=== PATIENT | female | born 1985 | race Caucasian/White ===

== ENCOUNTER 2020-08-10 17:38 | Observation (INO) ==
[2020-08-10 17:49] LABS: Bilirubin,Urine Negative (Negative); Blood,Urine Negative (Negative); Clarity,Urine Clear (Clear); Color,Urine Colorless (Yellow); Glucose,Urine (UA) Normal (Normal); Ketones,Urine Negative (Negative); Leukocyte Esterase,Urine Negative (Negative); Nitrite,Urine Negative (Negative); PH,Urine 6.5 pH Units (5.0-8.0); Protein,Urine Negative (Neg-Trace); Specific Gravity,Urine 1.008 (1.010-1.025); Urobilinogen,Urine Normal (Normal)
== END 2020-08-10 18:17 | disposition home or self-care (01) ==
LOC: 1NENULAB
PROVIDERS: ADMIT Student in an Organized Health Care Education/Training Program; ATTEND Student in an Organized Health Care Education/Training Program

== ENCOUNTER 2020-08-24 08:13 | Inpatient (IN) ==
[2020-08-24] MEDS ORDERED: Lidocaine 1% 20 ML MDV ID PRN (08:18)
[2020-08-24] MEDS ORDERED: Ondansetron 4 MG/2 ML VIAL IVP PRN ×2 (08:18→12:33)
[2020-08-24] MEDS ORDERED: Metoclopramide 10 MG/2 ML VIAL IVP PRN (08:18)
[2020-08-24] MEDS ORDERED: Azithromycin 500 MG in 0.9 % Sodium Chloride 250 ML IVPB ONE (08:18)
[2020-08-24] MEDS ORDERED: Naloxone 0.4 MG/ML INJ IVP PRN ×2 (08:18→12:33)
[2020-08-24] MEDS ORDERED: Famotidine 20 MG/2 ML VIAL IVP PRN (08:18)
[2020-08-24] MEDS ORDERED: *HR* FentaNYL (PF) 100 MCG/2 ML VIAL IVP PRN (08:18)
[2020-08-24] MEDS ORDERED: Ringers Solution, Lactated 1,000 ML IVC SCH (08:30)
[2020-08-24] MEDS ORDERED: Oxytocin 20 units/ LR 1000 mL 20 UNIT/1,000 ML BAG IVC SCH ×2 (08:30→19:43)
[2020-08-24 09:07] LABS: Basophils # 0.1 K/mcL (0.0-0.2); Basophils % 0.7 %; Eosinophils # 0.2 K/mcL (0.0-0.6); Eosinophils % 1.7 %; Hemoglobin 11.1 g/dL (11.5-15.4); Immature Granulocytes % 0.7 % (0-4); Lymphocytes # 2.8 K/mcL (0.6-4.6); Lymphocytes % 31.8 %; Mean Corpuscular HGB Conc 32.6 g/dL (31.6-35.5); Mean Platelet Volume 9.5 fL (9.4-12.4); Monocytes # 0.7 K/mcL (0.0-1.3); Monocytes % 7.4 %; Neutrophils # 5.1 K/mcL (1.6-8.9); Platelet Count 250 K/mcL (140-400); Red Blood Count 3.47 M/mcL (3.82-4.97); Red Cell Distribution Width 13.1 % (11.5-14.5); Segmented Neutrophils % 57.7 %; White Blood Count 8.8 K/mcL (4.3-11.1)
[2020-08-24 09:20] LABS: Amphetamine Screen,Urine Negative ng/mL (Cutoff=1000); Barbiturate Screen,Urine Negative ng/mL (Cutoff=200); Benzodiazepines Screen,Urine Negative ng/mL (Cutoff=200); Cannabinoid Screen,Urine Negative ng/mL (Cutoff = 50); Cocaine Screen,Urine Negative ng/mL (Cutoff= 300); Opiate Screen,Urine Negative ng/mL (Cutoff=300); Phencyclidine Screen,Urine Negative ng/mL (Cutoff=25)
[2020-08-24] MEDS ORDERED: miSOPROStoL 25 MCG TABLET PO STA (09:35)
[2020-08-24] MEDS ORDERED: EPHEDrine 50 MG/ML VIAL IVP PRN (12:33)
[2020-08-24] MEDS ORDERED: Ropivacaine/PF 0.2% 20 ML VIAL EP ONE (12:33)
[2020-08-24] MEDS ORDERED: Epidural Premix (fent/bupiv) 110 ML EP SCH (12:45)
[2020-08-24] MEDS ORDERED: Measles/Mumps/Rubella Vacc 0.5 ML VIAL SQ PRN (19:43)
[2020-08-24] MEDS ORDERED: Oxytocin 20 units/ LR 1000 mL 20 UNIT/1,000 ML BAG IVC ONE (19:43)
[2020-08-24] MEDS ORDERED: Rho Immune Globulin 1,500 UNIT SYRINGE IM PRN (19:43)
[2020-08-24] MEDS: Ibuprofen 600 MG TABLET PO PRN (20:27)
[2020-08-24] MEDS: Acetaminophen 325 MG TABLET PO PRN (22:33)
[2020-08-25 03:14] LABS: Basophils # 0.1 K/mcL (0.0-0.2); Basophils % 0.4 %; Eosinophils # 0.1 K/mcL (0.0-0.6); Eosinophils % 0.7 %; Hematocrit 32.8 % (35.3-44.9); Hemoglobin 10.7 g/dL (11.5-15.4); Immature Granulocytes % 0.3 % (0-4); Lymphocytes # 2.3 K/mcL (0.6-4.6); Lymphocytes % 20.1 %; Mean Corpuscular HGB Conc 32.6 g/dL (31.6-35.5); Mean Corpuscular Hemoglobin 31.7 pg (28.0-33.3); Mean Platelet Volume 9.6 fL (9.4-12.4); Monocytes # 0.7 K/mcL (0.0-1.3); Monocytes % 5.6 %; Neutrophils # 8.4 K/mcL (1.6-8.9); Platelet Count 242 K/mcL (140-400); Red Blood Count 3.38 M/mcL (3.82-4.97); Red Cell Distribution Width 12.8 % (11.5-14.5); Segmented Neutrophils % 72.9 %; White Blood Count 11.5 K/mcL (4.3-11.1)
[2020-08-25] MEDS: Ibuprofen 600 MG TABLET PO PRN ×3 (03:44→23:26)
[2020-08-25] MEDS: Prenatal Vit/FA 1 EACH TABLET PO SCH (08:33)
[2020-08-25] MEDS: Acetaminophen 325 MG TABLET PO PRN (08:33)
[2020-08-26] MEDS: Ibuprofen 600 MG TABLET PO PRN ×2 (05:55→12:22)
[2020-08-26] MEDS: Prenatal Vit/FA 1 EACH TABLET PO SCH (08:17)
[2020-08-26] MEDS: Acetaminophen 325 MG TABLET PO PRN (08:17)
[2020-08-26 09:12] VITALS: BP 109/73
== END 2020-08-26 14:48 | disposition home or self-care (01) | DRG 560 ==
LOC: 1NENULAB 08:13 → 1NENUOBS 19:42
PROVIDERS: ADMIT Obstetrics & Gynecology; ATTEND Obstetrics & Gynecology